=== PATIENT | male | born 1960 | race Caucasian/White ===

== ENCOUNTER → 2017-11-02 | Outpatient (CLI) | payer OTHER ==
--- NOTE | 2017-10-29 10:59 | NUR ---
ARRANGED FINANCIAL PLANNING CONSULTANT YESTERDAY FOR PT'S TEST TODAY. SPOKE WITH PATTI AT [employer], DUE TO THE WEATHER THEIR HOSPICE EXECUTIVE DIRECTOR WILL NOT BE ABLE TO COME TODAY. DEA IN CARDIOLGY NOTIFIED AND WILL NOTIFY PT TO RESCHEDULE HIS TEST. WILL NOTIFY [employer] WHEN TEST IS RESCHEDULED. CONFIRMED WITH PATTI, [facility] WILL NOT BE BILLED FOR THE HOSPICE EXECUTIVE DIRECTOR TODAY.
[~2017-11-02] MED LIST: ACETAMINOPHEN325 MG PO; AMOXICILLIN875 MG PO; ATORVASTATIN CA40 MG PO; B12 IM; D3 PO; FLOMAX0.4 MG PO; IBUPROFEN 800800 M1 PO; LEVOTHYROXIN0.025 MG PO; LIDOCAINE VISC100 M1 MM; MIDODRINE HCL 55 M1 PO; MIDODRINE HCL10 MG PO; NORCO 5-325 TA1 EACH PO; PRAVACHOL40 MG PO; ROBAXIN500 MG PO; SYNTHROID50 MCG PO; VITAMIN B-1000 MCG/2 SUBQ; VITAMIN D3400 UNIT PO; ZOCOR20 MG PO; ZOFRAN4 MG PO; [UNRECOGNIZED DRUG - OTHER]
--- NOTE | 2017-11-02 15:09 | EXE ---
[place] [address] STRESS ECHOCARDIOGRAM Name: TITO DIANA Room: [facility]#: [id number] Admission: 11/02/17 Attend Phys: Daniel Laurent, Discharge: Date of : 62 Date of Service: 11/02/17 1509 Report #: [id number] THIS REPORT FOR: //name// APPROVED REPORT Exam: Stress Echocardiogram Indication: Chest pain Patient Location: Out-Patient Stress Nurse: Gloria Garcia RN Supervising Physician: Yuniel Robison MD Ht: 5 ft 11 in HR: 64 bpm BP: 116/73 mmHg Medical History Cardiac Risk Factors: Hyperlipidemia, FHX of CAD Procedure The patient underwent an Exercise Stress Test using the Norberto Protocol. Blood pressure, heart rate, and EKG were monitored. An Echocardiogram was performed by bomb technician in four stages in quad fashion. At peak stress, four selected images were obtained and placed side by side with resting images for comparison. Stress Test Details Stress Test: Exercise stress testing was performed using a Norberto protocol. HR Resting HR: 64 bpm Max Heart Rate (APMHR): 164 bpm Max HR Achieved: 156 bpm Target HR (85% APMHR): 139 bpm % of APMHR: 95 Recovery HR: 96 bpm BP Resting BP: 116/73 mmHg Max BP: 156/67 mmHg Recovery BP: 120/77 mmHg ECG Clinical Reason for Termination: Dyspnea, Completed protocol, Maximal effort Exercise duration: 8 min 58 sec Highest Stage Achieved: Stage 3: 3.4 mph at 14% [place] [address] STRESS ECHOCARDIOGRAM Name: TITO DIANA Room: [facility]#: [id number] Admission: 11/02/17 Attend Phys: Daniel Laurent, Discharge: Date of : 62 Date of Service: 11/02/17 1509 Report #: [id number] Exercise capacity: 10.16 METs Pre-Stress Echo The resting Echocardiogram showed normal left ventricular contractility with an estimated Ejection Fraction of about 55-60%. Normal wall motion in all segments on baseline images. Post-Stress Echo The stress Echocardiogram showed normal left ventricular contractility with an estimated Ejection Fraction of about >70%. Normal augmentation of wall motion in all segments on post stress images. Clinical Normal augmentation of myocardial wall segments using a 17 segment model. Conclusion Clinical Response: Non-ischemic Exercise Capacity: Average Stress ECG Response: Non-ischemic Stress Echo Images: Non-ischemic The left ventricle is normal in size and wall thickness in both the rest and stress images. Other Information Study Quality: Good <Conclusion> The left ventricle is normal in size and wall thickness in both the rest and stress images. <ELECTRONICALLY SIGNED> By: Justin Alejandro MD, [facility] 11/02/17 1509 1509 1509 Justin Alejandro MD, [facility] /INF
== END ==
LOC: M.CRD 10-29 13:00
DX: R07.89 Other chest pain (principal)

== ENCOUNTER 2019-08-23 17:44 | Emergency (ER) | payer OTHER, SELFPAY ==
[~2019-08-23] VITALS: Ht 180.3 cm; Wt 94.3 kg
[2019-08-23] MEDS ORDERED: LASIX 20 MG TAB20 MG PO (18:35)
[2019-08-23] MEDS ORDERED: NORCO 5-325 TA1 EAC1 PO (20:01)
[2019-08-23 20:17] VITALS: BP 107/62
--- NOTE | 2019-08-24 10:36 | EKG ---
[place] [address] ELECTROCARDIOGRAM REPORT Name: TITO DIANA Room: [facility]#: [id number] Admission: 08/23/19 Attend Phys: Discharge: 08/23/19 Date of : 62 Report #: [id number] THIS REPORT FOR: //name// [facility] ED Test Date: 2019-08-23 Test Time: 18:05:58 Pat Name: TITO DIAAN Department: Room: Gender: M [employer]rections Corporal: : 1960 Requested By: Ashia Ledezma Order Number: [id number] Cale MD: Justin Alejandro Measurements Intervals [place] Rate: 69 P: 31 MD: 199 QRS: -24 QRSD: 84 T: 44 QT: 392 QTc: 420 Interpretive Statements Sinus rhythm Borderline left axis deviation Abnormal R-wave progression, early transition Baseline wander in lead(s) II,III,aVF Compared to ECG 01/22/2014 23:31:45 No significant changes Electronically Signed On 08-24-2019 10:36:01 PHYSICIAN ASSISTANT SURGERY by Justin Alejandro [email or web address] <ELECTRONICALLY SIGNED> By: Justin Alejandro MD, [facility] 08/24/19 1036 1805 1805 Justin Alejandro MD, [facility] /EPI
== END 2019-08-23 20:17 | disposition home or self-care (01) ==
LOC: M.ERS 17:44
DX: M25.561 Pain in right knee (principal); G47.30 Sleep apnea, unspecified; Z98.890 Other specified postprocedural states; Z88.8 Allergy status to other drugs, medicaments and biological substances; Z88.1 Allergy status to other antibiotic agents

== ENCOUNTER 2020-01-03 20:57 | Emergency (ER) | payer OTHER ==
[~2020-01-03] VITALS: Ht 180.3 cm; Wt 93.0 kg
[~2020-01-03 20:57] MED LIST changes: +LASIX 20 MG TAB20 MG PO; +NORCO 5-325 TA1 EAC1 PO
[2020-01-03] MEDS ORDERED: FLEXERIL PO (22:56)
[2020-01-03] MEDS ORDERED: HYDROCODON-ACE1 EAC8 PO (22:56)
[2020-01-03] MEDS ORDERED: ZOFRAN ODT4 MG PO (23:09)
[2020-01-03 23:13] VITALS: BP 129/79
--- NOTE | 2020-01-04 15:54 | EKG ---
[place] [address] ELECTROCARDIOGRAM REPORT Name: TITO DIANA Room: [facility]#: [id number] Admission: 01/03/20 Attend Phys: Discharge: 01/03/20 Date of : 62 Date of Service: 01/03/202121 Report #: [id number] THIS REPORT FOR: //name// [facility] ED Test Date: 2020-01-03 Test Time: 21:22:01 Pat Name: TITO DIANA Department: Room: Gender: Accounting Manager: : 1960 Requested By: Natalee Shearer Order Number: [id number] Cale MD: Jeremiah Hawk Measurements Intervals [place] Rate: 84 P: 38 ME: 183 QRS: -35 QRSD: 85 T: 53 QT: 375 QTc: 444 Interpretive Statements Sinus rhythm Left axis deviation Compared to ECG 08/23/2019 18:05:58 No significant changes Electronically Signed On 01-04-2020 15:52:59 CDT by Jeremiah Hawk [email or web address] <ELECTRONICALLY SIGNED> By: Jeremiah Hawk MD, [facility] 03/1551 21 21 Jeremiah Hawk MD, FAC /EPI
== END 2020-01-03 23:14 | disposition home or self-care (01) ==
LOC: M.ERS 20:57
DX: M25.512 Pain in left shoulder (principal); G47.30 Sleep apnea, unspecified; Z88.5 Allergy status to narcotic agent; Z88.8 Allergy status to other drugs, medicaments and biological substances

== ENCOUNTER → 2020-05-31 | Outpatient (CLI) | payer OTHER ==
[~2020-05-31] MED LIST changes: +FLEXERIL PO; +HYDROCODON-ACE1 EAC8 PO; +ZOFRAN ODT4 MG PO
== END ==
LOC: M.MRI 11:30
PROVIDERS: ATTEND Nurse Practitioner Family
DX: S43.432A Superior glenoid labrum lesion of left shoulder, initial encounter (principal); M19.012 Primary osteoarthritis, left shoulder; M25.412 Effusion, left shoulder; X58.XXXA Exposure to other specified factors, initial encounter; Y93.89 Activity, other specified; Y92.89 Other specified places as the place of occurrence of the external cause; Y99.8 Other external cause status

== ENCOUNTER → 2020-07-20 | Outpatient (CLI) | payer OTHER ==
[~2020-07-20] MED LIST changes: +B12INJ IM; +VITAMIN D PO
== END ==
LOC: M.LAB 08:50
PROVIDERS: ATTEND Orthopaedic Surgery
DX: Z01.812 Encounter for preprocedural laboratory examination (principal)

== ENCOUNTER → 2020-07-25 | Day surgery (SDC) | payer OTHER ==
[~2020-07-25] MED LIST changes: +PERCOCET 5-3251 EACH PO
--- NOTE | 2020-07-31 10:26 | OP ---
[address] [place] [address] [address] OPERATIVE REPORT Name: TITO DIANA Room: [facility]#: [id number] Admission: 07/25/20 Attend Phys: Luis Molina II Discharge: Date of : 62 Report #: [id number] THIS REPORT FOR: //name// cc: Ashok Smiley Vincent R. DO ~ CC: Luis Smiley DATE OF SERVICE: 07/25/2020 PREOPERATIVE DIAGNOSIS: Left shoulder lateral clavicle osteoarthritis. POSTOPERATIVE DIAGNOSES: 1. Left shoulder lateral clavicle osteoarthritis. 2. Bone and cartilage debris with labral tears, glenohumeral joint. 3. Subacromial impingement. PROCEDURES: 1. Left shoulder arthroscopic surgery with lateral clavicle excision. 2. Extensive debridement of labral tears, glenohumeral joint. 3. Subacromial decompression. SURGEON: Luis Molina II, DO SHEET TESTER: SOO Fuller ANESTHESIA: Per operative record. ESTIMATED BLOOD LOSS: Minimal. ANTIBIOTICS: Per operative record. DRAINS: None. COMPLICATIONS: None. CONDITION OF THE PATIENT: Stable to the recovery room. DESCRIPTION OF PROCEDURE: The patient was taken to the operative suite and placed supine on the OR table, given appropriate anesthesia. The patient's affected shoulder was sterilely prepped and draped in a modified beach chair position and all bony prominences were well padded. Surgery began by a posterior portal incision. The arthroscope was advanced in the joint. There was an intact biceps tendon with only minor fraying. There was shown to be extensive bone and cartilage debris and labral tears within the glenohumeral joint. This was debrided utilizing a shaver throughout the superior, [place] [address] OPERATIVE REPORT Name: TITO DIANA Nicol Room: [facility]#: [id number] Admission: 07/25/20 Attend Phys: Luis Molina II Discharge: Date of : 62 Report #: [id number] as well as anterior and posterior portions of the glenohumeral joint, utilizing a shaver to remove all the bone and cartilage debris with an extensive debridement being performed. The arthroscope was then advanced to the subacromial space and a subacromial decompression with partial anterior acromioplasty was performed due to significant impingement. The distal centimeter of the lateral clavicle was then excised utilizing a shaver to the distal center of the clavicle due to significant osteoarthritis at the AC joint. There was shown to be an intact rotator cuff with only minor fraying along the superior margin. It was probed and shown to be intact with excellent range of motion of the shoulder. Final images were taken. The shoulder was drained of arthroscopic fluid, closed with 4-0 nylon in simple fashion. Dermabond, sterile dressing and sling were applied. The patient transported to the recovery room in stable condition. Counts were correct throughout the procedure. <ELECTRONICALLY SIGNED> By: Luis Molina II, DO 07/31/20 1026 58 2119Luis Molina II, DO /nt
== END | disposition home or self-care (01) ==
LOC: M.SUR
PROVIDERS: ATTEND Orthopaedic Surgery
DX: M19.012 Primary osteoarthritis, left shoulder (principal); S43.432A Superior glenoid labrum lesion of left shoulder, initial encounter; M75.42 Impingement syndrome of left shoulder; M25.522 Pain in left elbow; Z79.899 Other long term (current) drug therapy; Z98.890 Other specified postprocedural states; X58.XXXA Exposure to other specified factors, initial encounter; Y93.89 Activity, other specified; Y92.89 Other specified places as the place of occurrence of the external cause; Y99.8 Other external cause status